=== PATIENT | female | born 1995 | race Caucasian/White ===

== ENCOUNTER → 2017-01-30 | Outpatient (CLI) | payer OTHER ==
[2017-01-30 16:21] LABS: PROGESTERONE 25.3 NG/ML
[2017-01-30 17:01] LABS: ESTRADIOL 1070.1 PG/ML
== END ==
LOC: M WUC 08:32
PROVIDERS: ATTEND Obstetrics & Gynecology Reproductive Endocrinology
DX: N97.9 Female infertility, unspecified (principal)

== ENCOUNTER → 2017-02-03 | Outpatient (CLI) | payer OTHER ==
[2017-02-03 10:55] LABS: PROGESTERONE 81.4 NG/ML
== END ==
LOC: M WUC 08:38
PROVIDERS: ATTEND Obstetrics & Gynecology Reproductive Endocrinology
DX: N97.9 Female infertility, unspecified (principal)

== ENCOUNTER → 2017-02-06 | Outpatient (CLI) | payer OTHER ==
[2017-02-06 11:13] LABS: ESTRADIOL 3580.6 PG/ML; PROGESTERONE 83.7 NG/ML
== END ==
LOC: M WUC 08:25
PROVIDERS: ATTEND Obstetrics & Gynecology Reproductive Endocrinology
DX: Z32.01 Encounter for pregnancy test, result positive (principal)

== ENCOUNTER 2017-02-11 13:34 | Emergency (ER) | payer OTHER ==
[~2017-02-11] VITALS: Ht 162.6 cm; Wt 59.0 kg
[2017-02-11] MEDS ORDERED: ESTR2TA (14:03)
[2017-02-11] MEDS ORDERED: PROG50IN5 (14:03)
[2017-02-11] MEDS ORDERED: ENDO100S (14:03)
[2017-02-11] MEDS ORDERED: PRED5TA (14:03)
[2017-02-11 14:47] LABS: BASO % 0.4 % (0.0-1.0); EOS # 0.5 K/mm3 (0.0-0.50); EOS % 3.7 % (0.0-3.0); LARGE UNSTAINED CELL # 0.1 K/mm3 (0.0-0.4); LARGE UNSTAINED CELL % 0.7 % (0.0-4.0); LYMPH % 7.3 % (24.0-44.0); MEAN CORPUSCULAR HEMOGLOBIN 29.5 pg (27.0-33.0); MEAN CORPUSCULAR HGB CONC 33.7 g/dl (32.0-36.5); MEAN CORPUSCULAR VOLUME 87.7 fl (80.0-96.0); MONO # 0.4 K/mm3 (0.0-0.8); PLATELET COUNT, AUTOMATED 385 k/mm3 (150-450); RED CELL DISTRIBUTION WIDTH 13.3 % (11.5-14.5); WHITE BLOOD COUNT 12.9 K/mm3 (4.0-10.0)
[2017-02-11 15:09] LABS: ANION GAP 9 MEQ/L (8-16); BLOOD UREA NITROGEN 14 MG/DL (7-18); CALCIUM LEVEL 8.7 MG/DL (8.5-10.1); CARBON DIOXIDE LEVEL 28 MEQ/L (21-32); CHLORIDE LEVEL 101 MEQ/L (98-107); CREATININE FOR GFR 0.85 MG/DL (0.55-1.02); GLOMERULAR FILTRATION RATE > 60.0 (>60); GLUCOSE, FASTING 99 MG/DL (70-105); HCG, SERUM QUANTITATIVE 2433 MIU/ML; POTASSIUM SERUM 3.9 MEQ/L (3.5-5.1); SODIUM LEVEL 138 MEQ/L (136-145)
[2017-02-11 16:17] VITALS: BP 129/79
--- NOTE | 2017-02-12 08:17 | REP ---
Obstetric sonography: History: Vaginal bleeding. Status post IVF with two embryos on January 25, 2017. Beta hCG unit 2433. Findings: Transabdominal and transvaginal scanning demonstrates normal size uterus with dimensions of 8.8 x 4.5 x 6.2 cm. The endometrium measures 0.8 cm in thickness. No normal intrauterine gestational sac is seen. There are two small cystic areas in the endometrium near the lower uterine segment observed during the examination. These changed shape during the exam consistent with fluid or hemorrhage. There are 2.7 and 4.8 mm in greatest dimension. No decidual reaction is seen. There is mild cul-de-sac fluid. The ovaries are somewhat enlarged consistent with recent stimulation and egg retrieval changes. Normal Doppler flow is seen in both ovaries. The left ovary measures 6.0 x 2.8 x 4.3 cm. The right ovary measures 5.7 x 3.3 x 3.9 cm. Resistive index on the right is 0.50 and on the left ovary 0.38. Impression: Nonspecific findings. There are two small cystic areas in the endometrium which appear to change their shape during the exam. These are most compatible with fluid. No clearly defined gestational sac is seen in the uterus. There is enlargement of both ovaries and a small amount of free fluid is seen. The ovarian enlargement is consistent with recent ovarian stimulation. Clinical and possibly sonographic followup is recommended. Signed by Ravi Verdugo MD 02/12/2017 08:43 A
--- NOTE | 2017-02-13 21:31 | ED PDOC ---
Post-Departure Follow-Up dr sh[facility] faxed formal report of 1st trimester us for [facility] Maycol Hernandez MD Feb 13, 2017 21:30
== END 2017-02-11 16:18 | disposition home or self-care (01) ==
LOC: M ED 14:28
DX: N93.9 Abnormal uterine and vaginal bleeding, unspecified (principal)

== ENCOUNTER → 2017-03-06 | Outpatient (CLI) | payer OTHER ==
[~2017-03-06] MED LIST: ENDO100S; ESTR2TA; PRED5TA; PROG50IN5
== END ==
LOC: M WUC 09:38
PROVIDERS: ATTEND Obstetrics & Gynecology Reproductive Endocrinology
DX: N97.9 Female infertility, unspecified (principal)

== ENCOUNTER → 2017-03-28 | Outpatient (CLI) | payer OTHER | LOC: M WUC 13:53 | PROVIDERS: ATTEND Obstetrics & Gynecology Reproductive Endocrinology | DX: O02.1 Missed abortion (principal) ==

== ENCOUNTER → 2017-12-06 | Outpatient (CLI) | payer OTHER ==
[2017-12-06 12:35] LABS: BASO # 0.1 10^3/uL (0.0-0.2); BASO % 0.6 % (0.0-1.0); EOS # 0.5 10^3/uL (0.0-0.50); EOS % 5.8 % (0.0-3.0); HEMATOCRIT 38.1 % (36.0-47.0); HEMOGLOBIN 13.1 g/dl (12.0-16.0); IMMATURE GRANULOCYTE % 0.2 % (0-0); LYMPH # 1.5 10^3/uL (1.5-6.5); MEAN CORPUSCULAR HEMOGLOBIN 29.7 pg (27.0-33.0); MEAN CORPUSCULAR HGB CONC 34.4 g/dl (32.0-36.5); MEAN CORPUSCULAR VOLUME 86.4 fl (80.0-96.0); MONO # 0.4 10^3/uL (0.0-0.8); NEUTROPHILS # 5.9 10^3/uL (1.8-7.7); NEUTROPHILS % 70.4 % (36.0-66.0); PLATELET COUNT, AUTOMATED 262 10^3/uL (150-450); RED BLOOD COUNT 4.41 10^6/uL (4.00-5.40); WHITE BLOOD COUNT 8.4 10^3/uL (4.0-10.0)
[2017-12-06 14:45] LABS: RUBELLA IgG QUALITATIVE IMMUNE (IMMUNE)
[2017-12-06 14:49] LABS: HBsAg Prenatal NEGATIVE (NEGATIVE)
[2017-12-06 15:16] LABS: HEPATITIS C VIRUS ABY INDEX 0.1 INDEX (<0.8)
[2017-12-06 15:17] LABS: HIV 1&2 SCREEN CENTAUR NEGATIVE (NEGATIVE)
[2017-12-06 15:54] LABS: CHLAMYDIA DNA AMPLIFICATION NEGATIVE (NEGATIVE); GC DNA AMPLIFICATION NEGATIVE (NEGATIVE)
== END ==
LOC: M LAB 11:50
DX: Z3A.12 12 weeks gestation of pregnancy (principal)